=== PATIENT | male | born 2005 | race Two or more races ===

== ENCOUNTER 2025-04-28 12:46 | Emergency (ER) | payer OTHER ==
[~2025-04-28] VITALS: Ht 182.9 cm; Wt 95.3 kg
[2025-04-28] MEDS ORDERED: DEXAMETHASONE SODIUM PHOSPHATE 4 MG/ML VIAL IM ONE (14:30)
[2025-04-28] MEDS ORDERED: MEDROLPACK PO (16:41)
== END 2025-04-28 17:06 | disposition home or self-care (01) ==
LOC: ER 12:47
DX: G51.0 Bell's palsy (principal); J32.0 Chronic maxillary sinusitis; Z88.8 Allergy status to other drugs, medicaments and biological substances